=== PATIENT | female | born 1955 | race Caucasian/White ===

== ENCOUNTER 2023-02-18 21:53 | Emergency (ER) | payer MEDICARE, OTHER ==
[2023-02-18 22:26] VITALS: BP 143/69; PULSE 87
[2023-02-18 22:35] LABS: STREP A BY PCR NOT DETECTED (NOT DETECT)
[2023-02-18 22:46] LABS: CORONAVIRUS COVID-19 NAA NEGATIVE (NEGATIVE)
[2023-02-18 22:47] LABS: INFLUENZA A NAA NEGATIVE (NEGATIVE); INFLUENZA B NAA NEGATIVE (NEGATIVE); RESPIRATORY SYNCYTIAL VIR NAA NEGATIVE (NEGATIVE)
[2023-02-18] MEDS ORDERED: Take Home: predniSONE 20 MG, 2 Tab Pack PO ONE (22:54)
[2023-02-18] MEDS ORDERED: Take Home: Doxycycline 100 MG Cap, 4 Cap Pack PO ONE (22:54)
[2023-02-18] MEDS ORDERED: Take Home: Codeine/guaiFENesin 100-10 MG/5 ML Syrup 5 ML, 2 Cup Pack PO ONE (22:54)
[2023-02-18] MEDS ORDERED: Ketorolac 30 MG/ML SDV IM ONE (22:54)
[2023-02-18] MEDS ORDERED: Benzonatate 100 MG Cap PO ONE (23:02)
[2023-02-18] MEDS ORDERED: Acetaminophen 500 MG Tab PO ONE (23:04)
[2023-02-18] MEDS ORDERED: Morphine 4 MG/ML Syringe IM ONE (23:15)
== END 2023-02-18 23:29 | disposition home or self-care (01) ==
LOC: VM.ED 21:53
DX: J18.9 Pneumonia, unspecified organism (principal); I10 Essential (primary) hypertension; E11.9 Type 2 diabetes mellitus without complications; Z88.5 Allergy status to narcotic agent; Z88.6 Allergy status to analgesic agent; Z79.82 Long term (current) use of aspirin; Z79.899 Other long term (current) drug therapy; Z79.84 Long term (current) use of oral hypoglycemic drugs; Z90.49 Acquired absence of other specified parts of digestive tract; Z90.710 Acquired absence of both cervix and uterus; Z20.822 Contact with and (suspected) exposure to COVID-19
CPT/HCPCS: 0241U; 71045; 87651-QW; 96372; 99284; A9270-GY; J2270

== ENCOUNTER 2023-04-23 15:53 | Observation (INO) | payer MEDICAID, MEDICARE ==
[2023-04-23] MEDS ORDERED: Acetaminophen/HYDROcodone 325-5 MG Tab PO ONE (16:58)
[2023-04-23] MEDS: Take Home: Acetaminophen/HYDROcodone 325-5 MG, 5 Tab Pack PO ONE ×2 (17:41→19:43)
[2023-04-23] MEDS ORDERED: Sodium Chloride 0.9% 10 ML Syringe FLUSH PRN (18:37)
[2023-04-23] MEDS ORDERED: Docusate Sodium 100 MG Cap PO PRN (18:37)
[2023-04-23] MEDS ORDERED: Acetaminophen 325 MG Tab PO PRN (18:37)
[2023-04-23] MEDS ORDERED: Ondansetron 4 MG Tab.DIS PO PRN (18:37)
[2023-04-23] MEDS ORDERED: Naloxone 0.4 MG/ML SDV IVPUSH PRN (18:37)
[2023-04-23] MEDS: HYDROmorphone 0.5 MG/0.5 ML Syringe IVPUSH PRN ×3 (19:38→23:57)
[2023-04-23] MEDS ORDERED: Hypromellose 0.3% Ophth Soln 15 ML Bottle EYEBOTH PRN (19:43)
[2023-04-23] MEDS ORDERED: ClonazePAM 0.5 MG Tab PO PRN (19:43)
[2023-04-23] MEDS ORDERED: cloNIDine 0.1 MG Tab PO SCH (19:45)
[2023-04-23] MEDS ORDERED: Ferrous Sulfate 325 MG Tab PO SCH (19:45)
[2023-04-23] MEDS: hydrALAZINE 25 MG Tab PO SCH ×2 (21:25→22:02)
[2023-04-23] MEDS: atorvaSTATin 40 MG Tab PO SCH (21:25)
[2023-04-23] MEDS: Carvedilol 25 MG Tab PO SCH (21:26)
[2023-04-23] MEDS: Omeprazole 20 MG Cap.CR PO SCH (21:56)
[2023-04-23] MEDS: Acetaminophen/oxyCODONE 325-5 MG Tab PO PRN (22:48)
[2023-04-23] MEDS: cloNIDine 0.1 MG Tab PO SCH ×2 (23:36→23:38)
[2023-04-24] MEDS ORDERED: Ketorolac 15 MG/ML SDV IVPUSH ONE (00:28)
[2023-04-24] MEDS: HYDROmorphone 0.5 MG/0.5 ML Syringe IVPUSH PRN ×2 (06:35→10:28)
[2023-04-24] MEDS: cloNIDine 0.1 MG Tab PO SCH ×3 (06:40→20:38)
[2023-04-24] MEDS: Omeprazole 20 MG Cap.CR PO SCH ×2 (06:40→17:30)
[2023-04-24] MEDS ORDERED: metFORMIN 500 MG Tab PO SCH (07:00)
[2023-04-24 08:07] LABS: HEMATOCRIT 31.5 % (33.0-47.0); HEMOGLOBIN 10.5 g/dL (12.0-16.0); MEAN CORPUSCULAR HEMOGLOBIN 25.4 pg (26.0-32.0); MEAN CORPUSCULAR HGB CONC 33.3 g/dL (32.0-36.0); MEAN CORPUSCULAR VOLUME 76.3 fL (78.0-93.0); RED BLOOD CELL COUNT 4.13 x10^6/uL (4.00-5.50); WHITE BLOOD CELL COUNT,WBC 7.3 x10^3/uL (4.0-10.0)
[2023-04-24 08:28] LABS: A/G RATIO 0.55; ALBUMIN 2.7 g/dL (3.4-5.0); BILIRUBIN TOTAL 0.2 mg/dL (0.2-1.0); CALCIUM 8.7 mg/dL (8.5-10.1); CREATININE 1.3 mg/dL (0.55-1.02); EST CRCL DRUG DOSING (CG) 38.3 mL/min; POTASSIUM,K 3.8 mmol/L (3.5-5.1); PROTEIN TOTAL,TP 7.6 g/dL (6.4-8.2)
[2023-04-24 08:29] LABS: ANION GAP 12.8 mmol/L (5-15)
[2023-04-24] MEDS ORDERED: Sodium Chloride 0.9% 1,000 ML IV SCH (08:45)
[2023-04-24] MEDS ORDERED: amLODIPine 5 MG Tab PO SCH (09:00)
[2023-04-24] MEDS ORDERED: Aspirin 81 MG Tab.Chew PO SCH (09:00)
[2023-04-24] MEDS ORDERED: amLODIPine 5 MG Tab PO ONE (09:30)
[2023-04-24] MEDS ORDERED: cloNIDine 0.1 MG Tab PO ONE (09:45)
[2023-04-24] MEDS: hydrALAZINE 25 MG Tab PO SCH ×3 (10:08→20:36)
[2023-04-24] MEDS: Carvedilol 25 MG Tab PO SCH ×2 (10:09→20:38)
[2023-04-24] MEDS: Clopidogrel 75 MG Tab PO SCH (10:11)
[2023-04-24] MEDS: amLODIPine 10 MG Tab PO SCH (10:12)
[2023-04-24] MEDS: Isosorbide Mononitrate 60 MG Tab.ER PO SCH (10:13)
[2023-04-24] MEDS: Aspirin 325 MG Tab.EC PO SCH (10:14)
[2023-04-24] MEDS: diphenhydrAMINE 50 MG/ML SDV IVPUSH PRN ×2 (10:24→16:53)
[2023-04-24] MEDS ORDERED: Enoxaparin 40 MG/0.4 ML Syringe SUBCUT SCH (12:00)
[2023-04-24] MEDS: Ferrous Sulfate 325 MG Tab PO SCH (12:51)
[2023-04-24] MEDS: Sertraline 100 MG Tab PO SCH (12:57)
[2023-04-24] MEDS: Acetaminophen/oxyCODONE 325-5 MG Tab PO PRN ×2 (16:46→21:20)
[2023-04-24] MEDS: atorvaSTATin 40 MG Tab PO SCH (20:37)
[2023-04-25] MEDS: Acetaminophen/oxyCODONE 325-5 MG Tab PO PRN ×3 (03:37→12:58)
[2023-04-25] MEDS: Omeprazole 20 MG Cap.CR PO SCH (06:17)
[2023-04-25] MEDS ORDERED: metFORMIN 500 MG Tab PO SCH (08:00)
[2023-04-25] MEDS: Aspirin 325 MG Tab.EC PO SCH (08:25)
[2023-04-25] MEDS: hydrALAZINE 25 MG Tab PO SCH ×2 (08:27→12:37)
[2023-04-25] MEDS: amLODIPine 10 MG Tab PO SCH (08:29)
[2023-04-25] MEDS: cloNIDine 0.1 MG Tab PO SCH ×2 (08:29→12:40)
[2023-04-25 08:31] LABS: A/G RATIO 0.5; ALBUMIN 2.3 g/dL (3.4-5.0); BILIRUBIN TOTAL 0.2 mg/dL (0.2-1.0); CALCIUM 8.4 mg/dL (8.5-10.1); CREATININE 1.5 mg/dL (0.55-1.02); EST CRCL DRUG DOSING (CG) 33.2 mL/min; POTASSIUM,K 4.3 mmol/L (3.5-5.1); PROTEIN TOTAL,TP 6.9 g/dL (6.4-8.2)
[2023-04-25] MEDS: Carvedilol 25 MG Tab PO SCH (08:31)
[2023-04-25] MEDS: Isosorbide Mononitrate 60 MG Tab.ER PO SCH (08:32)
[2023-04-25] MEDS: Clopidogrel 75 MG Tab PO SCH (08:32)
[2023-04-25 08:35] LABS: ANION GAP 13.3 mmol/L (5-15)
[2023-04-25] MEDS ORDERED: amLODIPine 10 MG Tab PO SCH (09:00)
[2023-04-25] MEDS: diphenhydrAMINE 50 MG/ML SDV IVPUSH PRN (09:16)
[2023-04-25] MEDS: Sertraline 100 MG Tab PO SCH (12:39)
[2023-04-25] MEDS: Ferrous Sulfate 325 MG Tab PO SCH (12:39)
[2023-04-25 14:35] VITALS: BP 123/74; PULSE 74
[2023-04-25] MEDS ORDERED: Lidocaine 1% with EPINEPHrine 1:100,000 20 ML MDV INFILT PRN (15:38)
[2023-04-28 20:06] LABS: ANA DIRECT Positive (Negative); ANTI-CENTROMERE B ANTIBODIES <0.2 AI (0.0-0.9); ANTI-DNA (DS) AB QN 6 IU/mL (0-9); ANTI-JO-1 <0.2 AI (0.0-0.9); ANTICHROMATIN ANTIBODIES <0.2 AI (0.0-0.9); ANTIRIBOSOMAL P ANTIBODIES <0.2 AI (0.0-0.9); ANTISCLERODERMA-70 ANTIBODIES <0.2 AI (0.0-0.9); RNP ANTIBODIES 0.3 AI (0.0-0.9); SJOGREN'S ANTI-SS-A >8.0 AI (0.0-0.9); SJOGREN'S ANTI-SS-B <0.2 AI (0.0-0.9); SMITH ANTIBODIES <0.2 AI (0.0-0.9); SMITH/RNP ANTIBODIES <0.2 AI (0.0-0.9)
== END 2023-04-25 16:23 | disposition home or self-care (01) ==
LOC: VM.ED 15:53 → VM.MS 18:18
PROVIDERS: ADMIT Nurse Practitioner Family; ATTEND Nurse Practitioner Family
DX: S82.001A Unspecified fracture of right patella, initial encounter for closed fracture (principal); I10 Essential (primary) hypertension; E78.5 Hyperlipidemia, unspecified; E11.9 Type 2 diabetes mellitus without complications; Z86.73 Personal history of transient ischemic attack (TIA), and cerebral infarction without residual deficits; Z90.49 Acquired absence of other specified parts of digestive tract; Z90.710 Acquired absence of both cervix and uterus; Z79.84 Long term (current) use of oral hypoglycemic drugs; Z79.899 Other long term (current) drug therapy; Z79.82 Long term (current) use of aspirin; X58.XXXA Exposure to other specified factors, initial encounter
CPT/HCPCS: 36415; 73562-RT; 80053; 82947; 85027; 85652; 86038; 86140; 86225; 86235; 96374; 96375; 96376; 99284; A9270-GY; G0378; J1170; J1200; J1885

== ENCOUNTER 2023-04-25 11:01 | Inpatient (IN) | payer MEDICARE ==
[2023-04-25] MEDS ORDERED: Ondansetron 4 MG Tab.DIS PO PRN (14:15)
[2023-04-25] MEDS ORDERED: HYDROmorphone 0.5 MG/0.5 ML Syringe IVPUSH PRN (14:15)
[2023-04-25] MEDS ORDERED: CLONAZEPAM 1 MG PO PRN (14:20)
[2023-04-25] MEDS ORDERED: Nitroglycerin 0.4 MG Tab.SL SL SCH (14:30)
[2023-04-25] MEDS ORDERED: Enoxaparin 40 MG/0.4 ML Syringe SUBCUT SCH ×2 (14:30→16:15)
[2023-04-25] MEDS ORDERED: Dexamethasone 4 MG/ML SDV IVPUSH SCH ×2 (15:30→16:15)
[2023-04-25] MEDS ORDERED: Nitroglycerin 0.4 MG Tab.SL SL PRN (16:15)
[2023-04-25] MEDS ORDERED: ClonazePAM 0.5 MG Tab PO PRN (16:27)
[2023-04-25] MEDS ORDERED: Hypromellose 0.3% Ophth Soln 15 ML Bottle EYEBOTH PRN (16:27)
[2023-04-25] MEDS ORDERED: Non-Formulary Medication 1 Each (Metformin [Glucophage] 1,000 MG Tablet) PO SCH (17:00)
[2023-04-25] MEDS: oxyCODONE 5 MG Tab PO PRN ×2 (17:23→21:34)
[2023-04-25] MEDS ORDERED: Carvedilol 25 MG Tab PO SCH ×2 (18:00→21:00)
[2023-04-25] MEDS ORDERED: metFORMIN 500 MG Tab PO SCH (18:00)
[2023-04-25] MEDS: Acetaminophen 325 MG Tab PO PRN (19:28)
[2023-04-25] MEDS ORDERED: cloNIDine 0.1 MG Tab PO SCH ×2 (21:00)
[2023-04-25] MEDS ORDERED: Non-Formulary Medication 1 Each (Vitamin E [Vitamin E] 400 UNIT Capsule) PO SCH (21:00)
[2023-04-25] MEDS ORDERED: atorvaSTATin 40 MG Tab PO SCH (21:00)
[2023-04-25] MEDS ORDERED: Isosorbide Mononitrate 60 MG Tab.ER PO SCH (21:00)
[2023-04-25] MEDS ORDERED: hydrALAZINE 25 MG Tab PO SCH (21:00)
[2023-04-25] MEDS ORDERED: busPIRone 5 MG Tab PO SCH ×2 (21:00)
[2023-04-25] MEDS ORDERED: Omeprazole 20 MG Cap.CR PO SCH (21:00)
[2023-04-25] MEDS ORDERED: Non-Formulary Medication 1 Each (Hydralazine [Apresoline] 100 MG Tablet) PO SCH (21:00)
[2023-04-25] MEDS ORDERED: Non-Formulary Medication 1 Each (Atorvastatin Calcium [Atorvastatin Calcium] 80 MG Tablet) PO SCH (21:00)
[2023-04-25] MEDS: Vitamin E (dl-alpha-tocopherol acetate) 400 Unit Cap PO SCH (21:30)
[2023-04-26] MEDS: Acetaminophen 325 MG Tab PO PRN ×2 (04:58→14:33)
[2023-04-26 06:51] LABS: HEMATOCRIT 26.8 % (33.0-47.0); HEMOGLOBIN 9.1 g/dL (12.0-16.0); MEAN CORPUSCULAR HEMOGLOBIN 25.9 pg (26.0-32.0); MEAN CORPUSCULAR VOLUME 76.1 fL (78.0-93.0); RED BLOOD CELL COUNT 3.52 x10^6/uL (4.00-5.50); WHITE BLOOD CELL COUNT,WBC 7.2 x10^3/uL (4.0-10.0)
[2023-04-26] MEDS ORDERED: Isosorbide Mononitrate 60 MG Tab.ER PO SCH (09:00)
[2023-04-26] MEDS ORDERED: Non-Formulary Medication 1 Each (Aspirin [Aspirin] 325 MG Tablet) PO SCH (09:00)
[2023-04-26] MEDS ORDERED: amLODIPine 5 MG Tab PO SCH ×2 (09:00)
[2023-04-26] MEDS ORDERED: CYANOCOBALAMIN 500 MCG PO SCH (09:00)
[2023-04-26] MEDS ORDERED: Ferrous Sulfate 325 MG Tab PO SCH ×2 (09:00→12:00)
[2023-04-26] MEDS ORDERED: CLONAZEPAM 1 MG PO SCH (10:00)
[2023-04-26] MEDS ORDERED: CLONAZEPAM 1 MG PO PRN (10:15)
[2023-04-26] MEDS ORDERED: Omeprazole 20 MG Cap.CR (OWN SUPPLY) PO SCH (10:15)
[2023-04-26] MEDS: Aspirin 325 MG Tab.EC PO SCH (11:27)
[2023-04-26] MEDS: Cyanocobalamin (Vitamin B12) 250 MCG Tab PO SCH (11:28)
[2023-04-26] MEDS: METFORMIN 1000 MG PO SCH ×2 (11:28→20:35)
[2023-04-26] MEDS: ISOSORBIDE DINITRATE 20 MG PO SCH ×3 (11:30→20:29)
[2023-04-26] MEDS: Sertraline 100 MG Tab (OWN SUPPLY) PO SCH ×2 (11:30→14:39)
[2023-04-26] MEDS: CARVEDILOL 25 MG PO SCH ×2 (11:31→20:28)
[2023-04-26] MEDS: CLONIDINE 0.1 MG PO SCH ×3 (11:31→20:36)
[2023-04-26] MEDS: HYDRALAZINE 100 MG PO SCH ×3 (11:35→20:36)
[2023-04-26] MEDS: BUSPIRONE 5 MG PO SCH ×2 (11:36→20:38)
[2023-04-26] MEDS: AMLODIPINE 10 MG PO SCH (11:36)
[2023-04-26] MEDS: DEXAMETHASONE 4 MG PO SCH (12:21)
[2023-04-26] MEDS ORDERED: Sertraline 100 MG Tab PO SCH (13:00)
[2023-04-26] MEDS: OXYCODONE 5 MG PO PRN (14:45)
[2023-04-26 14:52] LABS: APPEARANCE,URINE CLEAR (CLEAR); BILIRUBIN,URINE NEGATIVE (NEGATIVE); COLOR,URINE YELLOW (YELLOW); GLUCOSE,URINE 100 mg/dL (NEGATIVE); KETONES,URINE NEGATIVE (NEGATIVE); LEUKOCYTE ESTERASE,URINE SMALL (NEGATIVE); NITRITE,URINE NEGATIVE (NEGATIVE); OCCULT BLOOD,URINE NEGATIVE (NEGATIVE); PROTEIN,URINE >=300 mg/dL (NEGATIVE); UROBILINOGEN,URINE 0.2 EU/dL (0.2)
[2023-04-26 15:01] LABS: BACTERIA,URINE RARE /HPF (NOT SEEN); RBC,URINE 0-5 /HPF (NOT SEEN); SQUAMOUS EPITHELIAL CELLS,UR OCCASIONAL /HPF (NOT SEEN)
[2023-04-26] MEDS: Amoxicillin/Clavulanate K 875-125 MG Tab PO SCH ×2 (20:26)
[2023-04-26] MEDS: Vitamin E (dl-alpha-tocopherol acetate) 400 Unit Cap PO SCH (20:27)
[2023-04-26] MEDS ORDERED: ATORVASTATIN 80 MG PO SCH (21:00)
[2023-04-27 07:07] LABS: BASOPHILS PERCENT AUTO 0.2 % (0.2-1.2); HEMATOCRIT 24.5 % (33.0-47.0); HEMOGLOBIN 8.2 g/dL (12.0-16.0); IMMATURE GRAN ABSOLUTE AUTO 0.02 x10^3/uL (0.00-0.07); LYMPHOCYTES ABSOLUTE AUTO 0.4 x10^3/uL (1.0-4.8); MEAN CORPUSCULAR HEMOGLOBIN 25.6 pg (26.0-32.0); MEAN CORPUSCULAR HGB CONC 33.5 g/dL (32.0-36.0); MEAN CORPUSCULAR VOLUME 76.6 fL (78.0-93.0); MONOCYTES ABSOLUTE AUTO 0.5 x10^3/uL (0.0-0.8); MONOCYTES PERCENT AUTO 7.9 % (2.0-11.0); NEUTROPHILS ABSOLUTE AUTO 4.8 x10^3/uL (1.8-7.7); PLATELET COUNT,PLT 158 x10^3/uL (130-400); WHITE BLOOD CELL COUNT,WBC 5.7 x10^3/uL (4.0-10.0)
[2023-04-27 07:22] LABS: BLOOD UREA NITROGEN,BUN 35 mg/dL (7-18); CALCIUM 8.2 mg/dL (8.5-10.1); CARBON DIOXIDE,CO2 21 mmol/L (21-32); CREATININE 1.5 mg/dL (0.55-1.02); GLUCOSE RANDOM 296 mg/dL (70-99); POTASSIUM,K 4.1 mmol/L (3.5-5.1)
[2023-04-27 07:25] LABS: ANION GAP 14.1 mmol/L (5-15); CHLORIDE,CL 99 mmol/L (98-107); ESTIMATED GFR 38 mL/min (>=60); LYMPHOCYTES PERCENT AUTO 6.5 % (25.0-50.0); SODIUM,NA 130 mmol/L (136-145)
[2023-04-27] MEDS ORDERED: Omeprazole 20 MG Cap.CR PO SCH (09:00)
[2023-04-27] MEDS: CLONIDINE 0.1 MG PO SCH (09:03)
[2023-04-27] MEDS: METFORMIN 1000 MG PO SCH (09:07)
[2023-04-27] MEDS: HYDRALAZINE 100 MG PO SCH (09:07)
[2023-04-27] MEDS: CARVEDILOL 25 MG PO SCH (09:08)
[2023-04-27] MEDS: DEXAMETHASONE 4 MG PO SCH (09:09)
[2023-04-27] MEDS: ISOSORBIDE DINITRATE 20 MG PO SCH (09:09)
[2023-04-27] MEDS: AMLODIPINE 10 MG PO SCH (09:10)
[2023-04-27] MEDS: BUSPIRONE 5 MG PO SCH (09:10)
[2023-04-27] MEDS: OXYCODONE 5 MG PO PRN (09:11)
[2023-04-27] MEDS: Amoxicillin/Clavulanate K 875-125 MG Tab PO SCH (09:16)
[2023-04-27] MEDS: Aspirin 325 MG Tab.EC PO SCH (09:17)
[2023-04-27] MEDS: Cyanocobalamin (Vitamin B12) 250 MCG Tab PO SCH (09:17)
[2023-04-27 09:18] VITALS: BP 148/71; PULSE 814
== END 2023-04-27 09:38 | disposition critical access hospital (66) | DRG 563 ==
LOC: UNDOADMIN 11:01 → VM.MS 11:01 → UNDOADMIN 16:27 → VM.MS 16:27 → UNDODISIN 04-27 09:38
PROVIDERS: ADMIT Family Medicine; ATTEND Internal Medicine
DX: S82.001A Unspecified fracture of right patella, initial encounter for closed fracture (principal); E87.1 Hypo-osmolality and hyponatremia; I13.0 Hypertensive heart and chronic kidney disease with heart failure and stage 1 through stage 4 chronic kidney disease, or unspecified chronic kidney disease; N39.0 Urinary tract infection, site not specified; Z66 Do not resuscitate; F41.9 Anxiety disorder, unspecified; E11.22 Type 2 diabetes mellitus with diabetic chronic kidney disease; N18.2 Chronic kidney disease, stage 2 (mild); B18.2 Chronic viral hepatitis C; G47.00 Insomnia, unspecified; I50.9 Heart failure, unspecified; E61.1 Iron deficiency; F32.9 Major depressive disorder, single episode, unspecified; E11.65 Type 2 diabetes mellitus with hyperglycemia; R21 Rash and other nonspecific skin eruption; R41.9 Unspecified symptoms and signs involving cognitive functions and awareness; K21.9 Gastro-esophageal reflux disease without esophagitis; E78.00 Pure hypercholesterolemia, unspecified; G43.909 Migraine, unspecified, not intractable, without status migrainosus; W19.XXXA Unspecified fall, initial encounter; Z90.710 Acquired absence of both cervix and uterus; Z86.73 Personal history of transient ischemic attack (TIA), and cerebral infarction without residual deficits; Z79.82 Long term (current) use of aspirin; I25.2 Old myocardial infarction; Z88.5 Allergy status to narcotic agent; Z88.8 Allergy status to other drugs, medicaments and biological substances; Z79.84 Long term (current) use of oral hypoglycemic drugs; Z79.02 Long term (current) use of antithrombotics/antiplatelets; Z79.899 Other long term (current) drug therapy; Z91.041 Radiographic dye allergy status; Z90.49 Acquired absence of other specified parts of digestive tract
CPT/HCPCS: 36415; 71046; 80048; 81001; 82947; 85025; 85027; 85652; 86140; 87086; 97161-GP; 97165-GO; A9270-GY; J1170; J8540

== ENCOUNTER 2023-04-27 09:42 | Inpatient (IN) | payer MEDICARE ==
[2023-04-27] MEDS ORDERED: oxyCODONE 5 MG Tab PO PRN (10:10)
[2023-04-27] MEDS ORDERED: Ondansetron 4 MG Tab.DIS PO PRN (10:10)
[2023-04-27] MEDS ORDERED: Nitroglycerin 0.4 MG Tab.SL SL PRN (10:10)
[2023-04-27] MEDS ORDERED: Hypromellose 0.3% Ophth Soln 15 ML Bottle EYEBOTH PRN (10:10)
[2023-04-27] MEDS ORDERED: Glucagon,Human Recombinant 1 MG Vial IM PRN ×2 (10:15→21:10)
[2023-04-27] MEDS ORDERED: 50% Dextrose in Water 50 ML Syringe IVPUSH PRN ×2 (10:15→21:10)
[2023-04-27] MEDS ORDERED: ClonazePAM 0.5 MG Tab PO PRN ×2 (10:45→13:26)
[2023-04-27] MEDS ORDERED: Sertraline 100 MG Tab PO SCH (13:00)
[2023-04-27] MEDS: hydrALAZINE 25 MG Tab PO SCH ×2 (13:09→20:26)
[2023-04-27] MEDS: Isosorbide Dinitrate 10 MG Tab PO SCH ×2 (13:11→22:00)
[2023-04-27] MEDS: Ferrous Sulfate 325 MG Tab PO SCH (13:29)
[2023-04-27] MEDS: Pantoprazole 40 MG Vial IVPUSH SCH ×2 (13:29→20:19)
[2023-04-27] MEDS ORDERED: cloNIDine 0.1 MG Tab PO SCH (14:00)
[2023-04-27 14:12] LABS: HEMATOCRIT 22.7 % (33.0-47.0); HEMOGLOBIN 7.7 g/dL (12.0-16.0)
[2023-04-27] MEDS ORDERED: diphenhydrAMINE 50 MG/ML SDV ONE (16:18)
[2023-04-27] MEDS ORDERED: diphenhydrAMINE 50 MG/ML SDV IVPUSH PRN (16:22)
[2023-04-27] MEDS: Sertraline 100 MG Tab PO SCH (16:41)
[2023-04-27] MEDS: cloNIDine 0.1 MG Tab PO SCH ×3 (16:41→20:25)
[2023-04-27] MEDS: Acetaminophen 325 MG Tab PO PRN (17:38)
[2023-04-27] MEDS: Amoxicillin/Clavulanate K 875-125 MG Tab PO SCH (17:39)
[2023-04-27] MEDS: metFORMIN 500 MG Tab PO SCH (17:39)
[2023-04-27] MEDS: Carvedilol 25 MG Tab PO SCH (17:40)
[2023-04-27] MEDS: Insulin Glarg,Human.Rec.Analog 100 Unit/ML SUBCUT SCH (17:46)
[2023-04-27] MEDS ORDERED: Carvedilol 25 MG Tab PO SCH (18:00)
[2023-04-27] MEDS: atorvaSTATin 40 MG Tab PO SCH (20:18)
[2023-04-27] MEDS: busPIRone 5 MG Tab PO SCH (20:19)
[2023-04-27] MEDS: Vitamin E (dl-alpha-tocopherol acetate) 400 Unit Cap PO SCH (20:19)
[2023-04-27] MEDS ORDERED: busPIRone 5 MG Tab PO SCH (21:00)
[2023-04-27] MEDS ORDERED: Insulin Regular, Human 100 Units/ML 3 ML Vial SUBCUT ONE (21:54)
[2023-04-28 05:06] LABS: RHEUMATOID FACTOR <10 IU/mL (0-14)
[2023-04-28] MEDS: oxyCODONE 5 MG Tab PO PRN (06:34)
[2023-04-28] MEDS ORDERED: Omeprazole 20 MG Cap.CR PO SCH (07:00)
[2023-04-28 07:06] LABS: HEMATOCRIT 24.4 % (33.0-47.0); HEMOGLOBIN 8.1 g/dL (12.0-16.0); IMMATURE GRAN ABSOLUTE AUTO 0.02 x10^3/uL (0.00-0.07); LYMPHOCYTES ABSOLUTE AUTO 0.7 x10^3/uL (1.0-4.8); MEAN CORPUSCULAR HEMOGLOBIN 25.5 pg (26.0-32.0); MEAN CORPUSCULAR HGB CONC 33.2 g/dL (32.0-36.0); MEAN CORPUSCULAR VOLUME 76.7 fL (78.0-93.0); MONOCYTES ABSOLUTE AUTO 0.5 x10^3/uL (0.0-0.8); MONOCYTES PERCENT AUTO 7.1 % (2.0-11.0); NEUTROPHILS ABSOLUTE AUTO 6.1 x10^3/uL (1.8-7.7); NEUTROPHILS PERCENT AUTO 83.6 % (50.0-80.0); PLATELET COUNT,PLT 228 x10^3/uL (130-400); RED BLOOD CELL COUNT 3.18 x10^6/uL (4.00-5.50); WHITE BLOOD CELL COUNT,WBC 7.3 x10^3/uL (4.0-10.0)
[2023-04-28 07:39] LABS: A/G RATIO 0.44; ALBUMIN 2.1 g/dL (3.4-5.0); BILIRUBIN TOTAL 0.2 mg/dL (0.2-1.0); CALCIUM 8.6 mg/dL (8.5-10.1); CREATININE 1.4 mg/dL (0.55-1.02); EST CRCL DRUG DOSING (CG) 35.57 mL/min; PROTEIN TOTAL,TP 6.9 g/dL (6.4-8.2)
[2023-04-28] MEDS: Amoxicillin/Clavulanate K 875-125 MG Tab PO SCH ×2 (07:46→17:47)
[2023-04-28] MEDS: metFORMIN 500 MG Tab PO SCH ×2 (07:46→17:47)
[2023-04-28] MEDS: Carvedilol 25 MG Tab PO SCH ×2 (07:47→17:48)
[2023-04-28] MEDS: Insulin Glarg,Human.Rec.Analog 100 Unit/ML SUBCUT SCH (07:48)
[2023-04-28] MEDS ORDERED: 50% Dextrose in Water 50 ML Syringe IVPUSH PRN (08:17)
[2023-04-28] MEDS ORDERED: Glucagon,Human Recombinant 1 MG Vial IM PRN (08:17)
[2023-04-28] MEDS ORDERED: ClonazePAM 0.5 MG Tab PO PRN ×2 (08:29)
[2023-04-28] MEDS ORDERED: Dexamethasone 4 MG Tab PO SCH (09:00)
[2023-04-28] MEDS: Dexamethasone 4 MG Tab PO SCH (09:09)
[2023-04-28] MEDS: Aspirin 325 MG Tab.EC PO SCH (09:09)
[2023-04-28] MEDS: Cyanocobalamin (Vitamin B12) 250 MCG Tab PO SCH (09:10)
[2023-04-28] MEDS: Sennosides/Docusate Sodium 50-8.6 MG Tab PO SCH ×2 (09:15→20:11)
[2023-04-28] MEDS ORDERED: Albuterol/Ipratropium 3.0-0.5 MG/3 ML Neb Soln ONE (09:23)
[2023-04-28] MEDS ORDERED: Albuterol/Ipratropium 3.0-0.5 MG/3 ML Neb Soln NEB ONE (09:23)
[2023-04-28] MEDS ORDERED: diphenhydrAMINE 50 MG/ML SDV IVPUSH ONE (09:46)
[2023-04-28] MEDS ORDERED: Nitroglycerin 0.4 MG Tab.SL SL ONE (09:47)
[2023-04-28] MEDS: Isosorbide Dinitrate 10 MG Tab PO SCH ×3 (09:50→17:49)
[2023-04-28] MEDS: amLODIPine 10 MG Tab PO SCH (09:54)
[2023-04-28 09:55] LABS: BASE EXCESS ARTERIAL,POC -12 mmol/L ((-2)-3); HCO3 ARTERIAL,POC 14.7 mmol/L (21-28); PCO2 ARTERIAL,POC 30 mmHg (35-48); PO2 ARTERIAL,POC 64 mmHg (83-108); TCO2 ARTERIAL,POC 14.7 mmol/L (22-29)
[2023-04-28] MEDS: Furosemide 40 MG/4 ML VIAL ONE ×2 (09:55→10:06)
[2023-04-28] MEDS ORDERED: Furosemide 100 MG/10 ML SDV IV ONE (10:00)
[2023-04-28 10:12] LABS: A/G RATIO 0.41; ALBUMIN 2.3 g/dL (3.4-5.0); BILIRUBIN TOTAL 0.2 mg/dL (0.2-1.0); CALCIUM 8.8 mg/dL (8.5-10.1); CREATININE 1.6 mg/dL (0.55-1.02); EST CRCL DRUG DOSING (CG) 31.12 mL/min; POTASSIUM,K 4.7 mmol/L (3.5-5.1); PROTEIN TOTAL,TP 7.9 g/dL (6.4-8.2)
[2023-04-28 10:13] LABS: ANION GAP 18.7 mmol/L (5-15)
[2023-04-28] MEDS: busPIRone 5 MG Tab PO SCH ×2 (10:15→20:11)
[2023-04-28] MEDS: hydrALAZINE 25 MG Tab PO SCH ×3 (10:55→20:10)
[2023-04-28] MEDS: cloNIDine 0.1 MG Tab PO SCH ×3 (10:55→20:09)
[2023-04-28] MEDS: Pantoprazole 40 MG Tab.CR PO SCH ×2 (10:55→17:14)
[2023-04-28] MEDS ORDERED: Insulin Glarg,Human.Rec.Analog 100 Unit/ML SUBCUT SCH (11:15)
[2023-04-28] MEDS: Sertraline 100 MG Tab PO SCH (12:44)
[2023-04-28] MEDS: Ferrous Sulfate 325 MG Tab PO SCH (12:45)
[2023-04-28] MEDS: Insulin Lispro 100 Units/ML 3 ML Vial SUBCUT SCH ×2 (13:07→17:50)
[2023-04-28 13:32] LABS: BASE EXCESS ARTERIAL,POC -8 mmol/L ((-2)-3); O2 SATURATION ARTERIAL,POC 95.2 % (94-98); PCO2 ARTERIAL,POC 28 mmHg (35-48); PO2 ARTERIAL,POC 75 mmHg (83-108); TCO2 ARTERIAL,POC 16.9 mmol/L (22-29)
[2023-04-28 13:50] LABS: CALCIUM 8.4 mg/dL (8.5-10.1); CREATININE 1.7 mg/dL (0.55-1.02); EST CRCL DRUG DOSING (CG) 29.29 mL/min; POTASSIUM,K 4.1 mmol/L (3.5-5.1); URIC ACID 5.9 mg/dL (2.6-6.0)
[2023-04-28 13:53] LABS: ANION GAP 16.1 mmol/L (5-15)
[2023-04-28] MEDS: atorvaSTATin 40 MG Tab PO SCH (20:08)
[2023-04-28] MEDS: Vitamin E (dl-alpha-tocopherol acetate) 400 Unit Cap PO SCH (20:11)
[2023-04-28] MEDS ORDERED: Insulin Regular, Human 100 Units/ML 3 ML Vial SUBCUT ONE (21:11)
[2023-04-29 05:06] LABS: % TRANSFERRIN SAT 17.4 % (20.0-50.0)
[2023-04-29] MEDS: Pantoprazole 40 MG Tab.CR PO SCH ×2 (06:12→17:32)
[2023-04-29 06:42] LABS: HEMATOCRIT 24.7 % (33.0-47.0); HEMOGLOBIN 8.2 g/dL (12.0-16.0); IMMATURE GRAN ABSOLUTE AUTO 0.03 x10^3/uL (0.00-0.07); LYMPHOCYTES ABSOLUTE AUTO 0.8 x10^3/uL (1.0-4.8); LYMPHOCYTES PERCENT AUTO 10.3 % (25.0-50.0); MEAN CORPUSCULAR HEMOGLOBIN 25.5 pg (26.0-32.0); MEAN CORPUSCULAR HGB CONC 33.2 g/dL (32.0-36.0); MEAN CORPUSCULAR VOLUME 76.7 fL (78.0-93.0); MONOCYTES ABSOLUTE AUTO 0.6 x10^3/uL (0.0-0.8); MONOCYTES PERCENT AUTO 7.7 % (2.0-11.0); NEUTROPHILS ABSOLUTE AUTO 6.3 x10^3/uL (1.8-7.7); NEUTROPHILS PERCENT AUTO 81.6 % (50.0-80.0); PLATELET COUNT,PLT 246 x10^3/uL (130-400); RED BLOOD CELL COUNT 3.22 x10^6/uL (4.00-5.50); WHITE BLOOD CELL COUNT,WBC 7.7 x10^3/uL (4.0-10.0)
[2023-04-29 06:58] LABS: ANION GAP 13.1 mmol/L (5-15); CALCIUM 8.3 mg/dL (8.5-10.1); CREATININE 1.5 mg/dL (0.55-1.02); EST CRCL DRUG DOSING (CG) 32.86 mL/min; POTASSIUM,K 4.1 mmol/L (3.5-5.1)
[2023-04-29] MEDS ORDERED: Albuterol/Ipratropium 3.0-0.5 MG/3 ML Neb Soln NEB PRN (08:14)
[2023-04-29] MEDS: Insulin Glarg,Human.Rec.Analog 100 Unit/ML SUBCUT SCH (08:26)
[2023-04-29] MEDS: Amoxicillin/Clavulanate K 875-125 MG Tab PO SCH (08:31)
[2023-04-29] MEDS: busPIRone 5 MG Tab PO SCH ×2 (08:34→20:09)
[2023-04-29] MEDS: Acetaminophen 325 MG Tab PO PRN ×2 (08:35→21:21)
[2023-04-29] MEDS: Carvedilol 25 MG Tab PO SCH ×2 (08:35→17:32)
[2023-04-29] MEDS: Furosemide 20 MG Tab PO SCH (08:35)
[2023-04-29] MEDS: metFORMIN 500 MG Tab PO SCH ×2 (08:36→17:31)
[2023-04-29] MEDS: Aspirin 325 MG Tab.EC PO SCH (08:36)
[2023-04-29] MEDS: Cyanocobalamin (Vitamin B12) 250 MCG Tab PO SCH (08:36)
[2023-04-29] MEDS: Dexamethasone 4 MG Tab PO SCH (08:36)
[2023-04-29] MEDS: Famotidine 20 MG Tab PO SCH (08:36)
[2023-04-29] MEDS: Sennosides/Docusate Sodium 50-8.6 MG Tab PO SCH ×2 (08:37→20:09)
[2023-04-29] MEDS: amLODIPine 10 MG Tab PO SCH (08:37)
[2023-04-29] MEDS: Isosorbide Dinitrate 10 MG Tab PO SCH ×3 (08:43→17:36)
[2023-04-29] MEDS: cloNIDine 0.1 MG Tab PO SCH ×3 (08:43→21:31)
[2023-04-29] MEDS: hydrALAZINE 25 MG Tab PO SCH ×2 (08:43→12:21)
[2023-04-29] MEDS: oxyCODONE 5 MG Tab PO PRN ×2 (10:59→16:22)
[2023-04-29] MEDS: Insulin Lispro 100 Units/ML 3 ML Vial SUBCUT SCH ×2 (12:16→17:33)
[2023-04-29] MEDS: Ferrous Sulfate 325 MG Tab PO SCH (12:21)
[2023-04-29] MEDS: Sertraline 100 MG Tab PO SCH (12:21)
[2023-04-29] MEDS: atorvaSTATin 40 MG Tab PO SCH (20:09)
[2023-04-30] MEDS: Pantoprazole 40 MG Tab.CR PO SCH (06:25)
[2023-04-30 06:38] LABS: EOSINOPHILS PERCENT AUTO 0.1 % (0.0-4.0); HEMATOCRIT 25.7 % (33.0-47.0); HEMOGLOBIN 8.7 g/dL (12.0-16.0); IMMATURE GRAN ABSOLUTE AUTO 0.08 x10^3/uL (0.00-0.07); LYMPHOCYTES ABSOLUTE AUTO 1.5 x10^3/uL (1.0-4.8); LYMPHOCYTES PERCENT AUTO 20.8 % (25.0-50.0); MEAN CORPUSCULAR HEMOGLOBIN 25.4 pg (26.0-32.0); MEAN CORPUSCULAR HGB CONC 33.9 g/dL (32.0-36.0); MEAN CORPUSCULAR VOLUME 75.1 fL (78.0-93.0); MONOCYTES ABSOLUTE AUTO 0.6 x10^3/uL (0.0-0.8); MONOCYTES PERCENT AUTO 8.6 % (2.0-11.0); NEUTROPHILS ABSOLUTE AUTO 5.1 x10^3/uL (1.8-7.7); NEUTROPHILS PERCENT AUTO 69.4 % (50.0-80.0); PLATELET COUNT,PLT 305 x10^3/uL (130-400); RED BLOOD CELL COUNT 3.42 x10^6/uL (4.00-5.50); WHITE BLOOD CELL COUNT,WBC 7.3 x10^3/uL (4.0-10.0)
[2023-04-30 06:59] LABS: A/G RATIO 0.45; ALBUMIN 2.1 g/dL (3.4-5.0); BILIRUBIN TOTAL 0.2 mg/dL (0.2-1.0); CALCIUM 8.5 mg/dL (8.5-10.1); CREATININE 1.3 mg/dL (0.55-1.02); EST CRCL DRUG DOSING (CG) 36.89 mL/min; POTASSIUM,K 3.6 mmol/L (3.5-5.1); PROTEIN TOTAL,TP 6.8 g/dL (6.4-8.2)
[2023-04-30 07:00] LABS: ANION GAP 13.6 mmol/L (5-15)
[2023-04-30] MEDS ORDERED: ClonazePAM 0.5 MG Tab PO PRN (08:48)
[2023-04-30] MEDS: Insulin Glarg,Human.Rec.Analog 100 Unit/ML SUBCUT SCH (08:50)
[2023-04-30] MEDS: busPIRone 5 MG Tab PO SCH (08:52)
[2023-04-30] MEDS: Isosorbide Dinitrate 10 MG Tab PO SCH (08:52)
[2023-04-30] MEDS: metFORMIN 500 MG Tab PO SCH (08:52)
[2023-04-30] MEDS: cloNIDine 0.1 MG Tab PO SCH (08:52)
[2023-04-30] MEDS: amLODIPine 10 MG Tab PO SCH (08:53)
[2023-04-30] MEDS: Sennosides/Docusate Sodium 50-8.6 MG Tab PO SCH (08:53)
[2023-04-30] MEDS: Carvedilol 25 MG Tab PO SCH (08:53)
[2023-04-30] MEDS: Cyanocobalamin (Vitamin B12) 250 MCG Tab PO SCH (08:53)
[2023-04-30] MEDS: Furosemide 20 MG Tab PO SCH (08:55)
[2023-04-30] MEDS: Famotidine 20 MG Tab PO SCH (08:55)
[2023-04-30] MEDS: Aspirin 325 MG Tab.EC PO SCH (08:55)
[2023-04-30] MEDS ORDERED: Lisinopril 5 MG Tab PO SCH (09:00)
[2023-04-30] MEDS ORDERED: predniSONE 20 MG Tab PO SCH (09:00)
[2023-04-30 11:07] VITALS: BP 139/72; PULSE 69
[2023-05-02 10:06] LABS: HBSAG SCREEN Negative (Negative); HEP A AB, IGM Negative (Negative); HEP B CORE AB, IGM Negative (Negative)
[2023-05-02 10:19] LABS: HCV AB Reactive (Non Reactive)
[2023-05-04 15:11] LABS: ANTIMYELOPEROXIDASE ABS <0.2 units (0.0-0.9); ANTIPROTEINASE 3 (PR-3) ABS <0.2 units (0.0-0.9); ATYPICAL PANCA <1:20 titer (Neg:<1:20); CYTOPLASMIC (C-ANCA) <1:20 titer (Neg:<1:20); PERINUCLEAR (P-ANCA) <1:20 titer (Neg:<1:20)
== END 2023-04-30 11:10 | disposition swing bed (61) | DRG 947 ==
LOC: VM.MS 09:44
PROVIDERS: ADMIT Internal Medicine; ATTEND Internal Medicine
DX: R53.1 Weakness (principal); G93.41 Metabolic encephalopathy; D62 Acute posthemorrhagic anemia; I50.22 Chronic systolic (congestive) heart failure; E87.1 Hypo-osmolality and hyponatremia; N39.0 Urinary tract infection, site not specified; Z68.1 Body mass index [BMI] 19.9 or less, adult; E44.0 Moderate protein-calorie malnutrition; E87.20 Acidosis, unspecified; I25.10 Atherosclerotic heart disease of native coronary artery without angina pectoris; E11.65 Type 2 diabetes mellitus with hyperglycemia; B96.89 Other specified bacterial agents as the cause of diseases classified elsewhere; F41.9 Anxiety disorder, unspecified; E78.5 Hyperlipidemia, unspecified; N28.9 Disorder of kidney and ureter, unspecified; K21.9 Gastro-esophageal reflux disease without esophagitis; K59.00 Constipation, unspecified; I77.6 Arteritis, unspecified; W19.XXXA Unspecified fall, initial encounter; N30.90 Cystitis, unspecified without hematuria; I12.9 Hypertensive chronic kidney disease with stage 1 through stage 4 chronic kidney disease, or unspecified chronic kidney disease; E11.22 Type 2 diabetes mellitus with diabetic chronic kidney disease; N18.2 Chronic kidney disease, stage 2 (mild); Z79.82 Long term (current) use of aspirin; Z79.84 Long term (current) use of oral hypoglycemic drugs; Z86.73 Personal history of transient ischemic attack (TIA), and cerebral infarction without residual deficits; Z86.19 Personal history of other infectious and parasitic diseases; I25.2 Old myocardial infarction
CPT/HCPCS: 36415; 36600; 70450; 71045; 80048; 80053; 80074; 82595; 82803; 82947; 83520; 83540; 83550; 84295; 84484; 84550; 85014; 85018; 85025; 86160; 86200; 86256; 86431; 87522; 93005; 94640; 94760; 95851-GO; 97110-GP; 97116-GP; 97168-GO; 97530-GP; 97535-GO; A9270-GY; C9113; J1200; J1815-GY; J1940; J7512; J7620-GY; J8540

== ENCOUNTER 2023-04-30 10:06 | Inpatient (IN) | payer MEDICARE ==
[2023-04-30] MEDS ORDERED: Hypromellose 0.3% Ophth Soln 15 ML Bottle EYEBOTH PRN (12:20)
[2023-04-30] MEDS ORDERED: Albuterol/Ipratropium 3.0-0.5 MG/3 ML Neb Soln NEB PRN (12:20)
[2023-04-30] MEDS ORDERED: Nitroglycerin 0.4 MG Tab.SL SL PRN (12:20)
[2023-04-30] MEDS ORDERED: Ondansetron 4 MG Tab.DIS PO PRN (12:20)
[2023-04-30] MEDS ORDERED: Acetaminophen 325 MG Tab PO PRN (12:20)
[2023-04-30] MEDS ORDERED: 50% Dextrose in Water 50 ML Syringe IVPUSH PRN (12:20)
[2023-04-30] MEDS ORDERED: Glucagon,Human Recombinant 1 MG Vial IM PRN ×2 (12:20)
[2023-04-30] MEDS: Isosorbide Dinitrate 10 MG Tab PO SCH ×2 (12:43→17:42)
[2023-04-30] MEDS: Sertraline 100 MG Tab PO SCH (12:43)
[2023-04-30] MEDS: Ferrous Sulfate 325 MG Tab PO SCH (12:43)
[2023-04-30] MEDS: Insulin Lispro 100 Units/ML 3 ML Vial SUBCUT SCH ×2 (12:44→17:43)
[2023-04-30] MEDS: cloNIDine 0.1 MG Tab PO SCH ×2 (13:00→21:08)
[2023-04-30] MEDS: metFORMIN 500 MG Tab PO SCH (17:40)
[2023-04-30] MEDS: Carvedilol 25 MG Tab PO SCH (17:40)
[2023-04-30] MEDS: Pantoprazole 40 MG Tab.CR PO SCH (17:40)
[2023-04-30] MEDS: ClonazePAM 0.5 MG Tab PO PRN (19:46)
[2023-04-30] MEDS: busPIRone 5 MG Tab PO SCH (21:00)
[2023-04-30] MEDS: atorvaSTATin 40 MG Tab PO SCH (21:00)
[2023-04-30] MEDS: Sennosides/Docusate Sodium 50-8.6 MG Tab PO SCH (21:00)
[2023-05-01] MEDS: Pantoprazole 40 MG Tab.CR PO SCH ×2 (06:33→17:42)
[2023-05-01] MEDS: Insulin Glarg,Human.Rec.Analog 100 Unit/ML SUBCUT SCH (09:00)
[2023-05-01] MEDS: Isosorbide Dinitrate 10 MG Tab PO SCH ×3 (09:01→17:43)
[2023-05-01] MEDS: Cyanocobalamin (Vitamin B12) 250 MCG Tab PO SCH (09:01)
[2023-05-01] MEDS: Sennosides/Docusate Sodium 50-8.6 MG Tab PO SCH ×2 (09:02→20:06)
[2023-05-01] MEDS: Furosemide 20 MG Tab PO SCH (09:02)
[2023-05-01] MEDS: busPIRone 5 MG Tab PO SCH ×2 (09:02→20:06)
[2023-05-01] MEDS: Lisinopril 5 MG Tab PO SCH (09:03)
[2023-05-01] MEDS: Famotidine 20 MG Tab PO SCH (09:03)
[2023-05-01] MEDS: Aspirin 325 MG Tab.EC PO SCH (09:03)
[2023-05-01] MEDS: predniSONE 20 MG Tab PO SCH (09:03)
[2023-05-01] MEDS: Carvedilol 25 MG Tab PO SCH ×2 (09:03→17:42)
[2023-05-01] MEDS: amLODIPine 10 MG Tab PO SCH (09:04)
[2023-05-01] MEDS: metFORMIN 500 MG Tab PO SCH ×2 (09:04→17:42)
[2023-05-01] MEDS: cloNIDine 0.1 MG Tab PO SCH ×3 (09:04→20:11)
[2023-05-01] MEDS: oxyCODONE 5 MG Tab PO PRN ×2 (10:38→18:34)
[2023-05-01] MEDS: Ferrous Sulfate 325 MG Tab PO SCH (11:48)
[2023-05-01] MEDS: Insulin Lispro 100 Units/ML 3 ML Vial SUBCUT SCH ×2 (11:49→17:43)
[2023-05-01] MEDS: Sertraline 100 MG Tab PO SCH (13:13)
[2023-05-01] MEDS: atorvaSTATin 40 MG Tab PO SCH (20:06)
[2023-05-01] MEDS: ClonazePAM 0.5 MG Tab PO PRN (21:27)
[2023-05-02] MEDS: Pantoprazole 40 MG Tab.CR PO SCH ×2 (06:22→17:12)
[2023-05-02] MEDS: Isosorbide Dinitrate 10 MG Tab PO SCH ×3 (08:43→17:17)
[2023-05-02] MEDS: cloNIDine 0.1 MG Tab PO SCH ×3 (08:43→20:25)
[2023-05-02] MEDS: Famotidine 20 MG Tab PO SCH (08:43)
[2023-05-02] MEDS: Carvedilol 25 MG Tab PO SCH ×2 (08:43→17:12)
[2023-05-02] MEDS: Furosemide 20 MG Tab PO SCH (08:44)
[2023-05-02] MEDS: Lisinopril 5 MG Tab PO SCH (08:44)
[2023-05-02] MEDS: metFORMIN 500 MG Tab PO SCH ×2 (08:44→17:11)
[2023-05-02] MEDS: Sennosides/Docusate Sodium 50-8.6 MG Tab PO SCH ×2 (08:44→20:25)
[2023-05-02] MEDS: busPIRone 5 MG Tab PO SCH ×2 (08:44→20:25)
[2023-05-02] MEDS: Cyanocobalamin (Vitamin B12) 250 MCG Tab PO SCH (08:44)
[2023-05-02] MEDS: Aspirin 325 MG Tab.EC PO SCH (08:44)
[2023-05-02] MEDS: amLODIPine 10 MG Tab PO SCH (08:45)
[2023-05-02] MEDS: predniSONE 20 MG Tab PO SCH (08:45)
[2023-05-02] MEDS: Insulin Glarg,Human.Rec.Analog 100 Unit/ML SUBCUT SCH (08:48)
[2023-05-02] MEDS: Ferrous Sulfate 325 MG Tab PO SCH (11:39)
[2023-05-02] MEDS: Insulin Lispro 100 Units/ML 3 ML Vial SUBCUT SCH ×2 (11:40→17:13)
[2023-05-02] MEDS: Sertraline 100 MG Tab PO SCH (13:37)
[2023-05-02] MEDS: atorvaSTATin 40 MG Tab PO SCH (20:24)
[2023-05-02] MEDS: ClonazePAM 0.5 MG Tab PO PRN (20:25)
[2023-05-02] MEDS: oxyCODONE 5 MG Tab PO PRN (23:23)
[2023-05-03] MEDS: Pantoprazole 40 MG Tab.CR PO SCH ×2 (06:24→17:43)
[2023-05-03 07:00] LABS: BASOPHILS PERCENT AUTO 0.1 % (0.2-1.2); EOSINOPHILS ABSOLUTE AUTO 0.1 x10^3/uL (0.0-0.5); EOSINOPHILS PERCENT AUTO 0.8 % (0.0-4.0); IMMATURE GRAN ABSOLUTE AUTO 0.19 x10^3/uL (0.00-0.07); LYMPHOCYTES ABSOLUTE AUTO 1.7 x10^3/uL (1.0-4.8); LYMPHOCYTES PERCENT AUTO 19.7 % (25.0-50.0); MEAN CORPUSCULAR HEMOGLOBIN 25.3 pg (26.0-32.0); MEAN CORPUSCULAR HGB CONC 33.3 g/dL (32.0-36.0); MEAN CORPUSCULAR VOLUME 75.8 fL (78.0-93.0); MONOCYTES ABSOLUTE AUTO 0.8 x10^3/uL (0.0-0.8); MONOCYTES PERCENT AUTO 9.5 % (2.0-11.0); NEUTROPHILS ABSOLUTE AUTO 5.9 x10^3/uL (1.8-7.7); NEUTROPHILS PERCENT AUTO 67.7 % (50.0-80.0); PLATELET COUNT,PLT 385 x10^3/uL (130-400); RED BLOOD CELL COUNT 3.56 x10^6/uL (4.00-5.50); WHITE BLOOD CELL COUNT,WBC 8.8 x10^3/uL (4.0-10.0)
[2023-05-03 07:10] LABS: CALCIUM 8.3 mg/dL (8.5-10.1); CREATININE 1.2 mg/dL (0.55-1.02); EST CRCL DRUG DOSING (CG) 38.66 mL/min
[2023-05-03] MEDS: Furosemide 20 MG Tab PO SCH (08:28)
[2023-05-03] MEDS: Famotidine 20 MG Tab PO SCH (08:28)
[2023-05-03] MEDS: Isosorbide Dinitrate 10 MG Tab PO SCH ×3 (08:28→18:56)
[2023-05-03] MEDS: Aspirin 325 MG Tab.EC PO SCH (08:28)
[2023-05-03] MEDS: Sennosides/Docusate Sodium 50-8.6 MG Tab PO SCH ×3 (08:28→21:05)
[2023-05-03] MEDS: busPIRone 5 MG Tab PO SCH ×2 (08:29→21:04)
[2023-05-03] MEDS: amLODIPine 10 MG Tab PO SCH (08:29)
[2023-05-03] MEDS: cloNIDine 0.1 MG Tab PO SCH ×3 (08:29→21:02)
[2023-05-03] MEDS: metFORMIN 500 MG Tab PO SCH ×2 (08:29→17:43)
[2023-05-03] MEDS: Cyanocobalamin (Vitamin B12) 250 MCG Tab PO SCH (08:30)
[2023-05-03] MEDS: predniSONE 20 MG Tab PO SCH ×2 (08:30→09:51)
[2023-05-03] MEDS: Lisinopril 5 MG Tab PO SCH (08:30)
[2023-05-03] MEDS: Carvedilol 25 MG Tab PO SCH ×2 (08:30→17:44)
[2023-05-03] MEDS: Insulin Glarg,Human.Rec.Analog 100 Unit/ML SUBCUT SCH (08:37)
[2023-05-03] MEDS: oxyCODONE 5 MG Tab PO PRN ×3 (08:50→18:27)
[2023-05-03] MEDS: ClonazePAM 0.5 MG Tab PO PRN ×2 (08:51→21:02)
[2023-05-03] MEDS: Lisinopril 10 MG Tab PO SCH (09:58)
[2023-05-03] MEDS: Ferrous Sulfate 325 MG Tab PO SCH (11:41)
[2023-05-03] MEDS: Insulin Lispro 100 Units/ML 3 ML Vial SUBCUT SCH ×2 (11:42→18:23)
[2023-05-03] MEDS: Sertraline 100 MG Tab PO SCH (13:52)
[2023-05-03] MEDS ORDERED: Bisacodyl 10 MG Supp RECTAL PRN (17:17)
[2023-05-03] MEDS: atorvaSTATin 40 MG Tab PO SCH (21:04)
[2023-05-04] MEDS: Pantoprazole 40 MG Tab.CR PO SCH ×2 (06:26→17:11)
[2023-05-04] MEDS: metFORMIN 500 MG Tab PO SCH ×2 (07:49→17:12)
[2023-05-04] MEDS: Carvedilol 25 MG Tab PO SCH ×2 (07:49→17:13)
[2023-05-04] MEDS: Insulin Glarg,Human.Rec.Analog 100 Unit/ML SUBCUT SCH (07:51)
[2023-05-04] MEDS: Cyanocobalamin (Vitamin B12) 250 MCG Tab PO SCH (09:02)
[2023-05-04] MEDS: Aspirin 325 MG Tab.EC PO SCH (09:02)
[2023-05-04] MEDS: busPIRone 5 MG Tab PO SCH ×2 (09:03→20:07)
[2023-05-04] MEDS: Furosemide 20 MG Tab PO SCH (09:03)
[2023-05-04] MEDS: amLODIPine 10 MG Tab PO SCH (09:04)
[2023-05-04] MEDS: Famotidine 20 MG Tab PO SCH (09:04)
[2023-05-04] MEDS: Lisinopril 10 MG Tab PO SCH (09:05)
[2023-05-04] MEDS: predniSONE 20 MG Tab PO SCH (09:06)
[2023-05-04] MEDS: Isosorbide Dinitrate 10 MG Tab PO SCH ×3 (09:07→17:42)
[2023-05-04] MEDS: Sennosides/Docusate Sodium 50-8.6 MG Tab PO SCH ×2 (09:09→20:07)
[2023-05-04] MEDS: cloNIDine 0.1 MG Tab PO SCH ×3 (09:12→20:07)
[2023-05-04] MEDS: Sertraline 100 MG Tab PO SCH (12:12)
[2023-05-04] MEDS: Ferrous Sulfate 325 MG Tab PO SCH (12:13)
[2023-05-04] MEDS: Insulin Lispro 100 Units/ML 3 ML Vial SUBCUT SCH ×2 (12:14→17:44)
[2023-05-04] MEDS: oxyCODONE 5 MG Tab PO PRN ×2 (12:33→20:08)
[2023-05-04] MEDS: atorvaSTATin 40 MG Tab PO SCH (20:07)
[2023-05-05] MEDS: Pantoprazole 40 MG Tab.CR PO SCH (06:35)
[2023-05-05] MEDS: Cyanocobalamin (Vitamin B12) 250 MCG Tab PO SCH (07:49)
[2023-05-05] MEDS: Lisinopril 10 MG Tab PO SCH (07:50)
[2023-05-05] MEDS: busPIRone 5 MG Tab PO SCH (07:50)
[2023-05-05] MEDS: Sennosides/Docusate Sodium 50-8.6 MG Tab PO SCH (07:51)
[2023-05-05] MEDS: predniSONE 20 MG Tab PO SCH (07:52)
[2023-05-05] MEDS: amLODIPine 10 MG Tab PO SCH (07:53)
[2023-05-05] MEDS: metFORMIN 500 MG Tab PO SCH (07:54)
[2023-05-05] MEDS: Carvedilol 25 MG Tab PO SCH (07:55)
[2023-05-05] MEDS: Aspirin 325 MG Tab.EC PO SCH (07:56)
[2023-05-05] MEDS: Famotidine 20 MG Tab PO SCH ×2 (07:56→12:04)
[2023-05-05] MEDS: Furosemide 20 MG Tab PO SCH ×2 (07:57→07:59)
[2023-05-05] MEDS: Isosorbide Dinitrate 10 MG Tab PO SCH (08:05)
[2023-05-05] MEDS: Insulin Glarg,Human.Rec.Analog 100 Unit/ML SUBCUT SCH (08:06)
[2023-05-05] MEDS: cloNIDine 0.1 MG Tab PO SCH (08:09)
[2023-05-05] MEDS ORDERED: Lisinopril 10 MG Tab PO ONE (09:30)
[2023-05-05 11:18] VITALS: PULSE 74
[2023-05-05] MEDS: Sertraline 100 MG Tab PO SCH (12:08)
[2023-05-05] MEDS: Ferrous Sulfate 325 MG Tab PO SCH (12:09)
[2023-05-05] MEDS: ClonazePAM 0.5 MG Tab PO PRN (12:09)
[2023-05-05] MEDS: Insulin Lispro 100 Units/ML 3 ML Vial SUBCUT SCH (12:09)
[2023-05-05 12:11] VITALS: BP 174/63
[2023-05-06] MEDS ORDERED: Lisinopril 10 MG Tab PO SCH (09:00)
== END 2023-05-05 12:15 | DRG 947 ==
LOC: VM.MS 11:10
PROVIDERS: ADMIT Internal Medicine; ATTEND Internal Medicine
DX: R53.1 Weakness (principal); G93.41 Metabolic encephalopathy; E44.0 Moderate protein-calorie malnutrition; Z68.1 Body mass index [BMI] 19.9 or less, adult; I50.22 Chronic systolic (congestive) heart failure; I25.10 Atherosclerotic heart disease of native coronary artery without angina pectoris; S82.001D Unspecified fracture of right patella, subsequent encounter for closed fracture with routine healing; F41.9 Anxiety disorder, unspecified; I11.0 Hypertensive heart disease with heart failure; N28.9 Disorder of kidney and ureter, unspecified; E78.5 Hyperlipidemia, unspecified; M32.0 Drug-induced systemic lupus erythematosus; K21.9 Gastro-esophageal reflux disease without esophagitis; I69.319 Unspecified symptoms and signs involving cognitive functions following cerebral infarction; D53.9 Nutritional anemia, unspecified; I77.6 Arteritis, unspecified; E11.65 Type 2 diabetes mellitus with hyperglycemia; Z79.82 Long term (current) use of aspirin; Z86.19 Personal history of other infectious and parasitic diseases; W19.XXXD Unspecified fall, subsequent encounter
CPT/HCPCS: 36415; 73562-RT; 80048; 82947; 85025; 87522; 95851-GO; 97110-GP; 97530-GP; 97535-GO; A9270-GY; J7512

== ENCOUNTER 2024-10-23 11:07 | Emergency (ER) | payer MEDICAID, MEDICARE ==
[2024-10-23] MEDS: Acetaminophen 325 MG Tab PO ONE (11:25)
[2024-10-23 12:00] LABS: BASOPHILS PERCENT AUTO 0.2 % (0.2-1.2); EOSINOPHILS ABSOLUTE AUTO 0.2 x10^3/uL (0.0-0.5); HEMATOCRIT 34.7 % (33.0-47.0); HEMOGLOBIN 11.5 g/dL (12.0-16.0); IMMATURE GRAN ABSOLUTE AUTO 0.03 x10^3/uL (0.00-0.07); LYMPHOCYTES PERCENT AUTO 16.9 % (25.0-50.0); MEAN CORPUSCULAR HEMOGLOBIN 26.7 pg (26.0-32.0); MEAN CORPUSCULAR HGB CONC 33.1 g/dL (32.0-36.0); MEAN CORPUSCULAR VOLUME 80.7 fL (78.0-93.0); MONOCYTES ABSOLUTE AUTO 0.4 x10^3/uL (0.0-0.8); MONOCYTES PERCENT AUTO 7.7 % (2.0-11.0); NEUTROPHILS PERCENT AUTO 70.7 % (50.0-80.0); PLATELET COUNT,PLT 173 x10^3/uL (130-400); WHITE BLOOD CELL COUNT,WBC 5.7 x10^3/uL (4.0-10.0)
[2024-10-23 12:15] LABS: A/G RATIO 0.73; ALANINE AMINOTRANSFERASE,ALT 30 U/L (14-59); ALBUMIN 3.2 g/dL (3.4-5.0); ALKALINE PHOSPHATASE 82 U/L (46-116); ASPARTATE AMNIOTRANSFERASE,AST 26 U/L (15-37); BILIRUBIN TOTAL 0.3 mg/dL (0.2-1.0); BLOOD UREA NITROGEN,BUN 29 mg/dL (7-18); CALCIUM 8.8 mg/dL (8.5-10.1); CARBON DIOXIDE,CO2 26 mmol/L (21-32); CHLORIDE,CL 106 mmol/L (98-107); CREATININE 1.8 mg/dL (0.55-1.02); GLUCOSE RANDOM 164 mg/dL (70-99); POTASSIUM,K 5.5 mmol/L (3.5-5.1); PROTEIN TOTAL,TP 7.6 g/dL (6.4-8.2); SODIUM,NA 141 mmol/L (136-145)
[2024-10-23 12:16] LABS: ANION GAP 14.5 mmol/L (5-15); ESTIMATED GFR 31 mL/min (>=60)
[2024-10-23 14:41] LABS: CALCIUM 9.1 mg/dL (8.5-10.1); CREATININE 1.7 mg/dL (0.55-1.02); EST CRCL DRUG DOSING (CG) 28.9 mL/min; POTASSIUM,K 4.9 mmol/L (3.5-5.1)
[2024-10-23 14:42] LABS: ANION GAP 16.9 mmol/L (5-15)
[2024-10-23] MEDS ORDERED: Sodium Chloride 0.9% 10 ML Syringe FLUSH PRN (14:51)
[2024-10-23] MEDS: fentaNYL 50 MCG/ML SDV IVPUSH ONE ×2 (15:10→15:55)
[2024-10-23 15:15] VITALS: BP 134/44; PULSE 74
== END 2024-10-23 15:55 | disposition short-term general hospital (02) ==
LOC: VM.ED 11:07
DX: S62.231A Other displaced fracture of base of first metacarpal bone, right hand, initial encounter for closed fracture (principal); S72.002A Fracture of unspecified part of neck of left femur, initial encounter for closed fracture; E87.5 Hyperkalemia; I10 Essential (primary) hypertension; E78.00 Pure hypercholesterolemia, unspecified; E11.9 Type 2 diabetes mellitus without complications; Z90.49 Acquired absence of other specified parts of digestive tract; Z90.710 Acquired absence of both cervix and uterus; Z79.899 Other long term (current) drug therapy; Z79.4 Long term (current) use of insulin; Z88.5 Allergy status to narcotic agent; Z88.8 Allergy status to other drugs, medicaments and biological substances; W01.0XXA Fall on same level from slipping, tripping and stumbling without subsequent striking against object, initial encounter
CPT/HCPCS: 36415; 73110-RT; 73140-F5; 73700-LT; 80048; 80053; 85025; 96374; 96376; 99284; 99285-25; A9270-GY; J3010